=== PATIENT | female | born 1990 | race Caucasian/White ===

== ENCOUNTER 2017-06-16 14:54 | Emergency (ER) | payer OTHER ==
[~2017-06-16] VITALS: Ht 165.1 cm; Wt 84.0 kg
[2017-06-16 14:56] VITALS: BP 122/74; PULSE 133; RESP 15; TEMP 100.2; O2SAT 100
[2017-06-16] MEDS ORDERED: IBUPROFEN 600 MG TAB PO ONE (16:00)
[2017-06-16] MEDS ORDERED: ACETAMINOPHEN/HYDROcodone 325 MG/5 MG TAB PO ONE (16:00)
[2017-06-16] MEDS ORDERED: CLINDAMYCIN INJ 600 MG in SODIUM CHLORIDE 0.9% INJ 100 ML IV ONE (16:00)
[2017-06-16 16:28] LABS: AUTOMATED NEUTROPHIL # 9.4 TH/MM3 (1.8-7.7); BASOPHIL % 0.2 % (0.0-2.0); EOSINOPHIL # 0.4 TH/MM3 (0-0.4); HEMATOCRIT 37.1 % (35.0-46.0); HEMO FLAGS DIFF FINAL; LYMPH % 12.8 % (9.0-44.0); LYMPHOCYTE # 1.6 TH/MM3 (1.0-4.8); MEAN CELL VOLUME 86.1 FL (80.0-100.0); MEAN CORPUSCULAR HEMOGLOBIN 28.5 PG (27.0-34.0); MEAN CORPUSCULAR HGB CONC 33.1 % (32.0-36.0); MONO % 10.2 % (0.0-8.0); NEUT % 73.8 % (16.0-70.0); PLATELET COUNT 239 TH/MM3 (150-450); RED BLOOD COUNT 4.32 MIL/MM3 (4.00-5.30); RED CELL DISTRIBUTION WIDTH 13.4 % (11.6-17.2); WHITE BLOOD COUNT 12.8 TH/MM3 (4.0-11.0)
--- NOTE | 2017-06-16 16:28 | PD ---
HPI Chief Complaint: Oral / Dental Pain or Problem Time Seen by Provider: 15:22 Travel History International Travel<30 days: No Contact w/Intl Traveler<30days: No Traveled to known affect area: No History of Present Illness HPI 26-year-old female came to the emergency room with history of dental pain on the left side of her upper molar. Patient is from but does not have a dentist here. Patient had a temperature of 100.3 in triage. Says this has been bothering her since yesterday. She does seem uncomfortable. She was tachycardic in triage as well. She seems uncomfortable. She is also complaining of headache, facial pain and generalized body ache. PFSH Past Medical History Narrative Medical List of her past medical, surgical, social and family history reviewed from the nursing note. Arthritis: Yes (rhuematoid arthritis) Depression: Yes Diabetes: Yes Patient Takes Glucophage: No Fibromyalgia: Yes Tetanus Vaccination: < 5 Years Influenza Vaccination: No ?: Unknown LMP: 05/20/17 Social History Alcohol Use: No Tobacco Use: No Substance Use: Yes (marijuana (hx of meth)) Allergies-Medications (Allergen,Severity, Reaction): Coded Allergies: Penicillins (Verified Allergy, Severe, Anaphylaxis, 06/16/17) amoxicillin (Verified Allergy, Severe, Anaphylaxis, 06/16/17) Comments List of her allergies reviewed from the nursing note. Reported Meds & Prescriptions Reported Meds & Active Scripts Active Ibuprofen 600 Mg Tab 600 Mg PO Q6H PRN Hydrocodone-Acetaminophen 5-325 mg Tab 1 Tab PO Q6H PRN Clindamycin (Clindamycin HCl) 300 Mg Cap 300 Mg PO TID 10 Days Narrative Medication Awaiting for the nurse to the med reconciliation. Review of Systems Except as stated in HPI: all other systems reviewed are Neg Physical Exam Narrative GENERAL: Awake, alert, moderate distress, anxious SKIN: Focused skin assessment warm/dry. Multiple scabs on the face HEAD: Atraumatic. Normocephalic. EYES: Pupils equal and round. No scleral icterus. No injection or drainage. ENT: No nasal bleeding or discharge. Mucous membranes pink and moist. #16 eroded, caries, fluctuant gum on the oral aspect with a tiny pus pointing area NECK: Trachea midline. No JVD. CARDIOVASCULAR: Regular rate and rhythm. No murmur appreciated. RESPIRATORY: No accessory muscle use. Clear to auscultation. Breath sounds equal bilaterally. GASTROINTESTINAL: Abdomen soft, non-tender, nondistended. Hepatic and splenic margins not palpable. MUSCULOSKELETAL: No obvious deformities. No clubbing. No cyanosis. No edema. NEUROLOGICAL: Awake and alert. No obvious cranial nerve deficits. Motor grossly within normal limits. Normal speech. PSYCHIATRIC: Appropriate mood and affect; insight and judgment normal. Data Data Last Documented VS Vital Signs Date Time Temp Pulse Resp B/P (MAP) Pulse Ox O2 Delivery O2 Flow Rate FiO2 06/16/17 19:30 06/16/17 14:56 100.2 133 15 100 Orders Orders Complete Blood Count With Diff (06/16/17 15:47) Comprehensive Metabolic Panel (06/16/17 15:47) Lactic Acid Sepsis Protocol (06/16/17 15:47) Urinalysis - C+S If Indicated (06/16/17 15:47) Blood Culture (06/16/17 15:47) Blood Glucose (06/16/17 15:47) Ecg Monitoring (06/16/17 15:47) Iv Access Insert/Monitor (06/16/17 15:47) Oximetry (06/16/17 15:47) Oxygen Administration (06/16/17 15:47) Ibuprofen (Motrin) (06/16/17 16:00) Acetamin-Hydrocod 325-5 Mg (Velarde 5-325 (06/16/17 16:00) Clindamycin Inj (Cleocin Inj) (06/16/17 16:00) Potassium Chloride (Kcl) (06/16/17 16:45) Sodium Chlor 0.9% 1000 Ml Inj (Ns 1000 M (06/16/17 17:15) Sodium Chlor 0.9% 1000 Ml Inj (Ns 1000 M (06/16/17 17:15) Urine Culture (06/16/17 15:58) Labs Laboratory Tests Test 06/16/17 15:35 06/16/17 15:55 06/16/17 15:58 White Blood Count 12.8 TH/MM3 Red Blood Count 4.32 MIL/MM3 Hemoglobin 12.3 GM/DL Hematocrit 37.1 % Mean Corpuscular Volume 86.1 FL Mean Corpuscular Hemoglobin 28.5 PG Mean Corpuscular Hemoglobin Concent 33.1 % Red Cell Distribution Width 13.4 % Platelet Count 239 TH/MM3 Mean Platelet Volume 8.5 FL Neutrophils (%) (Auto) 73.8 % Lymphocytes (%) (Auto) 12.8 % Monocytes (%) (Auto) 10.2 % Eosinophils (%) (Auto) 3.0 % Basophils (%) (Auto) 0.2 % Neutrophils # (Auto) 9.4 TH/MM3 Lymphocytes # (Auto) 1.6 TH/MM3 Monocytes # (Auto) 1.3 TH/MM3 Eosinophils # (Auto) 0.4 TH/MM3 Basophils # (Auto) 0.0 TH/MM3 CBC Comment DIFF FINAL Differential Comment Blood Urea Nitrogen 12 MG/DL Creatinine 0.85 MG/DL Random Glucose 90 MG/DL Total Protein 8.1 GM/DL Albumin 3.5 GM/DL Calcium Level 9.0 MG/DL Alkaline Phosphatase 103 U/L Aspartate Amino Transf (AST/SGOT) 13 U/L Alanine Aminotransferase (ALT/SGPT) 24 U/L Total Bilirubin 0.4 MG/DL Sodium Level 136 MEQ/L Potassium Level 3.6 MEQ/L Chloride Level 101 MEQ/L Carbon Dioxide Level 28.0 MEQ/L Anion Gap 7 MEQ/L Estimat Glomerular Filtration Rate 82 ML/MIN Lactic Acid Level 0.8 mmol/L Urine Color YELLOW Urine Turbidity HAZY Urine pH 6.5 Urine Specific [place] 1.018 Urine Protein 30 mg/dL Urine Glucose (UA) NEG mg/dL Urine Ketones NEG mg/dL Urine Occult Blood SMALL Urine Nitrite POS Urine Bilirubin NEG Urine Urobilinogen LESS THAN 2.0 MG/DL Urine Leukocyte Esterase LARGE Urine RBC 2 /hpf Urine WBC /hpf Urine WBC Clumps FEW Urine Squamous Epithelial Cells 2 /hpf Urine Bacteria RARE /hpf Urine Mucus FEW /lpf Microscopic Urinalysis Comment CATH-CULTURE IND MDM Medical Decision Making Medical Screen Exam Complete: Yes Emergency Medical Condition: Yes Medical Record Reviewed: Yes Differential Diagnosis Dental abscess Narrative Course 5 PM patient is given IV clindamycin and IV fluid. I have ordered Tylenol for the fever. She is also getting pain medications. Blood test results are back and she has slight leukocytosis but lactic acid is within normal limit. Rest of her test results are within normal limit. After the IV antibiotic and the fluid patient can be discharged home. Procedures EKG Prior to Arrival: No Diagnosis Primary Impression: Dental abscess Referrals: Primary Care Physician Additional Instructions: Please try to get a dentist appointment as soon as possible so that the tooth can be taken care of. In go to [facility] and they will direct you to a dentist since he did not have insurance. Take the antibiotic and medication as per the prescription direction. Med/Other Pt SpecificInfo: Prescription(s) given Scripts Ibuprofen (Ibuprofen) 600 Mg Tab 600 MG PO Q6H Y for Pain/Inflammation, #40 TAB 0 Refills Prov: Simi Crews MD 06/16/17 Hydrocodone-Acetaminophen (Hydrocodone-Acetaminophen) 5-325 mg Tab 1 TAB PO Q6H Y for PAIN, #15 TAB 0 Refills Prov: Simi Crews MD 06/16/17 Clindamycin (Clindamycin) 300 Mg Cap 300 MG PO TID for Infection for 10 Days, CAP 0 Refills Prov: Simi Crews MD 06/16/17 Disposition: 01 DISCHARGE HOME Condition: Stable Simi Crews MD Jun 16, 2017 16:28
[2017-06-16] MEDS ORDERED: POTASSIUM CHLORIDE 20 MEQ CONTROLLED RELEASE TAB PO ONE (16:45)
[2017-06-16 16:49] LABS: ALT (GPT) 24 U/L (10-53); ANION GAP 7 MEQ/L (5-15); AST (GOT) 13 U/L (15-37); BLOOD UREA NITROGEN 12 MG/DL (7-18); CHLORIDE 101 MEQ/L (98-107); GLOMERULAR FILTRATION RATE 82 ML/MIN (>89); POTASSIUM 3.6 MEQ/L (3.5-5.1); SODIUM (NA) 136 MEQ/L (136-145)
[2017-06-16 16:52] LABS: ALKALINE PHOSPHATASE 103 U/L (45-117); TOTAL BILIRUBIN ADULT 0.4 MG/DL (0.2-1.0)
[2017-06-16] MEDS ORDERED: CLIN1CAP6 PO (16:55)
[2017-06-16] MEDS ORDERED: HYDR-3516 PO (16:56)
[2017-06-16] MEDS ORDERED: IBUP-232 PO (16:56)
[2017-06-16 17:14] LABS: BACTERIA, URINE RARE /hpf; BLOOD, URINE SMALL (NEG); GLUCOSE,URINE NEG (NEG); KETONE, URINE NEG (NEG); MUCUS URINE FEW /lpf (OCC); NITRITE,URINE POS (NEG); PH, URINE 6.5 (5.0-8.5); SQUAMOUS EPITHELIAL CELL URINE 2 /hpf (0-5); URINE COLOR YELLOW (YELLW/STRAW)
[2017-06-16] MEDS ORDERED: SODIUM CHLOR 0.9% 1000 ML INJ 1,000 ML IV ONE ×2 (17:15)
[2017-06-16 17:18] LABS: COMMENT (UR) CATH-CULTURE IND; CULTURE IF INDICATED CATH CULTURE IND
== END 2017-06-16 19:32 | disposition home or self-care (01) ==
LOC: NEPD 14:54
DX: K04.7 Periapical abscess without sinus (principal); N39.0 Urinary tract infection, site not specified; B96.20 Unspecified Escherichia coli [E. coli] as the cause of diseases classified elsewhere
CPT/HCPCS: 80053; 81001; 83605; 85025; 87040; 87077; 87086; 87186; 96361; 96365; 99284; J7030

== ENCOUNTER 2017-09-16 14:15 | Emergency (ER) | payer MEDICAID, OTHER ==
[~2017-09-16 14:15] MED LIST: CLIN300C5 PO; HYDR-3516 PO; IBUP-232 PO
[2017-09-16 14:16] VITALS: BP 124/84; PULSE 76; RESP 16; TEMP 98.4; O2SAT 100
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
--- NOTE | 2017-09-16 15:28 | RADRPT ---
EXAM DATE/TIME: 09/16/2017 15:04 [facility] COMPARISON: No previous studies available for comparison. INDICATIONS : Chest pain. MEDICAL HISTORY : None. SURGICAL HISTORY : None. ENCOUNTER: Initial ACUITY: 1 day PAIN SCORE: 2/10 LOCATION: Bilateral chest FINDINGS: A single view of the chest demonstrates the lungs to be symmetrically aerated without evidence of mas s, infiltrate or effusion. The cardiomediastinal contours are unremarkable. Osseous structures are intact. CONCLUSION: 1. No acute cardiopulmonary disease. Genaro Lay MD on September 16, 2017 at 15:25 Board Certified Radiologist. This report was verified electronically.
[2017-09-16 15:47] LABS: AUTOMATED NEUTROPHIL # 5.5 TH/MM3 (1.8-7.7); BASOPHIL % 0.5 % (0.0-2.0); EOSINOPHIL # 0.6 TH/MM3 (0-0.4); EOSINOPHIL % 6.1 % (0.0-4.0); HEMATOCRIT 43.2 % (35.0-46.0); HEMOGLOBIN 14.1 GM/DL (11.6-15.3); LYMPHOCYTE # 2.9 TH/MM3 (1.0-4.8); MEAN CELL VOLUME 86.8 FL (80.0-100.0); MEAN CORPUSCULAR HEMOGLOBIN 28.3 PG (27.0-34.0); MEAN CORPUSCULAR HGB CONC 32.7 % (32.0-36.0); MEAN PLATELET VOLUME 9.6 FL (7.0-11.0); MONO % 5.6 % (0.0-8.0); MONOCYTE # 0.5 TH/MM3 (0-0.9); NEUT % 57.8 % (16.0-70.0); PLATELET COUNT 229 TH/MM3 (150-450); RED BLOOD COUNT 4.98 MIL/MM3 (4.00-5.30); RED CELL DISTRIBUTION WIDTH 14.1 % (11.6-17.2); WHITE BLOOD COUNT 9.5 TH/MM3 (4.0-11.0)
[2017-09-16 16:15] LABS: ALBUMIN 3.6 GM/DL (3.4-5.0); ALT (GPT) 26 U/L (10-53); AST (GOT) 16 U/L (15-37); BICARBONATE 25.8 MEQ/L (21.0-32.0); BLOOD UREA NITROGEN 7 MG/DL (7-18); CALCIUM 8.9 MG/DL (8.5-10.1); CHLORIDE 109 MEQ/L (98-107); CREATININE 0.73 MG/DL (0.50-1.00); GLOMERULAR FILTRATION RATE 98 ML/MIN (>89); GLUCOSE,RANDOM 91 MG/DL (74-106); SODIUM (NA) 141 MEQ/L (136-145)
[2017-09-16 16:19] LABS: ALKALINE PHOSPHATASE 93 U/L (45-117); TOTAL BILIRUBIN ADULT 0.2 MG/DL (0.2-1.0); TOTAL PROTEIN 7.4 GM/DL (6.4-8.2); TROPONIN I LESS THAN 0.02 NG/ML (0.02-0.05)
[2017-09-16 17:08] VITALS: BP 124/90; PULSE 78; RESP 18; O2SAT 98
--- NOTE | 2017-09-16 20:55 | EKG ---
Date Performed: 09/16/2017 Time Performed: 14:42:10 PTAGE: 26 years EKG: Sinus rhythm NORMAL ECG NO PREVIOUS TRACING DOCTOR: Artemio Cheatham Interpretating Date/Time 09/16/2017 20:54:27
[2017-09-16 22:45] VITALS: BP 140/86; PULSE 99; RESP 18; O2SAT 99
[2017-09-17 06:10] VITALS: BP 124/64; PULSE 74; RESP 17; O2SAT 99
--- NOTE | 2017-09-17 10:58 | PD ---
Physical Exam Time Seen by Provider: 10:57 Narrative Please refer to previous providers documentation for details surrounding the patient's current visit. Data Data Last Documented VS Vital Signs Date Time Temp Pulse Resp B/P (MAP) Pulse Ox O2 Delivery O2 Flow Rate FiO2 09/17/17 06:10 74 17 124/64 (84) 99 Room Air 09/16/17 14:16 98.4 Orders Orders Complete Blood Count With Diff (09/16/17 14:46) Comprehensive Metabolic Panel (09/16/17 14:46) Ed Urine Pregnancytest Poc (09/16/17 14:46) Electrocardiogram (09/16/17 14:46) Psych Screen (09/16/17 14:46) Drug Screen, Random Urine (09/16/17 14:46) Alcohol (Ethanol) (09/16/17 14:46) Chest, Single Ap (09/16/17 ) Ckmb (Isoenzyme) Profile (09/16/17 14:46) Troponin I (09/16/17 14:46) Lactic Acid Sepsis Protocol (09/16/17 14:46) Blood Culture (09/16/17 14:46) CKMB (09/16/17 15:00) CKMB% (09/16/17 15:00) Diet Diabetic (09/17/17 Breakfast) Diet Regular Basic (09/17/17 Lunch) Ed Discharge Order (09/17/17 10:56) Labs Laboratory Tests Test 09/16/17 15:00 09/16/17 15:20 White Blood Count 9.5 TH/MM3 Red Blood Count 4.98 MIL/MM3 Hemoglobin 14.1 GM/DL Hematocrit 43.2 % Mean Corpuscular Volume 86.8 FL Mean Corpuscular Hemoglobin 28.3 PG Mean Corpuscular Hemoglobin Concent 32.7 % Red Cell Distribution Width 14.1 % Platelet Count 229 TH/MM3 Mean Platelet Volume 9.6 FL Neutrophils (%) (Auto) 57.8 % Lymphocytes (%) (Auto) 30.0 % Monocytes (%) (Auto) 5.6 % Eosinophils (%) (Auto) 6.1 % Basophils (%) (Auto) 0.5 % Neutrophils # (Auto) 5.5 TH/MM3 Lymphocytes # (Auto) 2.9 TH/MM3 Monocytes # (Auto) 0.5 TH/MM3 Eosinophils # (Auto) 0.6 TH/MM3 Basophils # (Auto) 0.0 TH/MM3 CBC Comment DIFF FINAL Differential Comment Blood Urea Nitrogen 7 MG/DL Creatinine 0.73 MG/DL Random Glucose 91 MG/DL Total Protein 7.4 GM/DL Albumin 3.6 GM/DL Calcium Level 8.9 MG/DL Alkaline Phosphatase 93 U/L Aspartate Amino Transf (AST/SGOT) 16 U/L Alanine Aminotransferase (ALT/SGPT) 26 U/L Total Bilirubin 0.2 MG/DL Sodium Level 141 MEQ/L Potassium Level 3.9 MEQ/L Chloride Level 109 MEQ/L Carbon Dioxide Level 25.8 MEQ/L Anion Gap 6 MEQ/L Estimat Glomerular Filtration Rate 98 ML/MIN Lactic Acid Level 1.7 mmol/L Total Creatine Kinase 134 U/L Creatine Kinase MB 1.2 NG/ML Troponin I LESS THAN 0.02 NG/ML Ethyl Alcohol Level LESS THAN 3 MG/DL Urine Opiates Screen NEG Urine Barbiturates Screen NEG Urine Amphetamines Screen POS Urine Benzodiazepines Screen NEG Urine Cocaine Screen NEG Urine Cannabinoids Screen POS MDM Medical Record Reviewed: Yes Supervised Visit with ROSHNI: No Narrative Course Patient has been seen and evaluated by psychiatry. Rapp act has been lifted. With no further acute medical needs, patient will be discharged at this time. Diagnosis Primary Impression: Adjustment disorder Qualified Codes: F43.25 - Adjustment disorder with mixed disturbance of emotions and conduct Referrals: [facility] (Out patient) Scripts No Active Prescriptions or Reported Meds Disposition: 01 DISCHARGE HOME Condition: Stable BinghamRaina leon REYNOLD Sep 17, 2017 10:57
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
[2017-09-17 11:08] VITALS: BP 128/82; PULSE 82; RESP 17; O2SAT 99
== END 2017-09-17 12:09 | disposition home or self-care (01) ==
LOC: NEPC 14:15 → NEPJ 09-17 12:09
DX: F43.25 Adjustment disorder with mixed disturbance of emotions and conduct (principal); F15.10 Other stimulant abuse, uncomplicated; F17.200 Nicotine dependence, unspecified, uncomplicated; E10.9 Type 1 diabetes mellitus without complications; R07.9 Chest pain, unspecified
CPT/HCPCS: 71010; 80053; 80307; 82550; 82552; 83605; 84484; 84703; 85025; 87040; 93005; 99285

== ENCOUNTER 2017-11-09 14:04 | Emergency (ER) | payer MEDICAID ==
[~2017-11-09] VITALS: Ht 167.6 cm; Wt 95.5 kg
[2017-11-09 14:06] VITALS: BP 124/63; PULSE 99; RESP 13; TEMP 98.2; O2SAT 99
[2017-11-09] MEDS ORDERED: BACT800T5 PO (15:08)
[2017-11-09] MEDS ORDERED: IBUP1TAB7 PO (15:08)
--- NOTE | 2017-11-09 15:08 | PD ---
HPI Chief Complaint: Lump, Cyst, Hernia Time Seen by Provider: 14:51 Travel History International Travel<30 days: No Contact w/Intl Traveler<30days: No Traveled to known affect area: No History of Present Illness HPI 26-year-old female presents to emergency Department with complaint of an abscess to her right armpit 2 weeks. Denies drainage. Denies fever, vomiting. No prior antibiotics. Has been taking ibuprofen for symptom management. Rates pain 7/10. Describes as a pressure and throbbing sensation. Aggravated with palpation when she puts her arm down. No known relieving factors. No primary care provider. Allergies to penicillins. History of diabetes mellitus and is diet controlled. Has no other medical complaints. No other modifying factors or associated signs and symptoms. 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), methamphetamine IV) Allergies-Medications (Allergen,Severity, Reaction): Coded Allergies: Penicillins (Verified Allergy, Severe, Anaphylaxis, 11/09/17) amoxicillin (Verified Allergy, Severe, Anaphylaxis, 11/09/17) Reported Meds & Prescriptions Reported Meds & Active Scripts Active Ibuprofen 800 Mg Tab 800 Mg PO Q6HR PRN Bactrim DS (Sulfamethoxazole-Trimethoprim) 800-160 Mg Tab 1 Tab PO BID 10 Days Review of Systems Except as stated in HPI: all other systems reviewed are Neg Physical Exam Narrative GENERAL: Well-nourished, well-developed female patient, in no acute distress; afebrile, nontoxic-appearing SKIN: There is an indurated area to the right axilla which measures about 2.5 cm in diameter. It is fluctuant but there is no pointing or drainage. There is a zone of inflammation around it but no lymphangitis. HEAD: Atraumatic. Normocephalic. EYES: Pupils equal and round. No scleral icterus. No injection or drainage. ENT: Mucosa pink and moist. Airway patent. NECK: Trachea midline. CARDIOVASCULAR: Regular rate. RESPIRATORY: No accessory muscle use. GASTROINTESTINAL: Obese. MUSCULOSKELETAL: No obvious deformities. No clubbing. No cyanosis. No edema. NEUROLOGICAL: Awake and alert. Oriented 3. No obvious cranial nerve deficits. Motor grossly within normal limits. Normal speech. PSYCHIATRIC: Appropriate mood and affect; insight and judgment normal. Data Data Last Documented VS Vital Signs Date Time Temp Pulse Resp B/P (MAP) Pulse Ox O2 Delivery O2 Flow Rate FiO2 11/09/17 14:06 98.2 99 13 124/63 (83) 99 Orders Orders Wound Culture And Gram Stain (11/09/17 15:05) Lidocaine 1% Inj (Xylocaine 1% Inj) (11/09/17 15:15) Ed Discharge Order (11/09/17 15:30) [facility] Medical Decision Making Medical Screen Exam Complete: Yes Emergency Medical Condition: Yes Medical Record Reviewed: Yes Differential Diagnosis Abscess, cellulitis, hydradenitis Narrative Course 26-year-old female with an abscess to the right axilla. Patient is afebrile and nontoxic-appearing. Denies fever, vomiting. My procedure note for incision and drainage. Wound culture pending. Ibuprofen administered in the ER. Bactrim and ibuprofen prescribed for home. Instructed patient to return to emergency department or follow-up with primary care provider in 48 hours for packing removal. Instructed patient to follow up with primary care provider. Patient verbalizes understanding and agreement with treatment plan. Patient is medically cleared and stable for discharge. Discussed reasons to return to the emergency department. Patient agrees with treatment plan. The patients vital signs are stable and the patient is stable for outpatient follow-up and treatment. Patient discharged home, stable and in no acute distress. Procedures Procedure Narrative INCISION AND DRAINAGE OF ABSCESS: The area was prepped and was sterilely draped. A subcutaneous wheal of 1 % Xylocaine with a total number 2 mL was used to anesthetize the area properly. A number 11 scalpel was used to make a 1 -cm incision across the area of the abscess. The abscess was drained, complex loculations were broken down, and irrigated with normal saline. Cultures were obtained. Quarter inch iodoform packing was placed in the wound. Sterile dressing applied. Patient advised to have packing removed in two days. Diagnosis Primary Impression: Abscess of right axilla Referrals: [facility] Primary Care Physician Patient Instructions: Abscess (ED), Abscess Follow-up (ED), Abscess Incision and Drainage (GEN), General Instructions Additional Instructions: Complete full course of antibiotics Warm compresses to the affected area Keep area clean and dry Ibuprofen or Tylenol as directed and as needed for pain and inflammation Follow-up with primary care provider Return to the emergency department or follow-up with primary care provider in 48 hours for abscess packing removal Return to emergency department immediately with worsening of symptoms Med/Other Pt SpecificInfo: Prescription(s) given Scripts Ibuprofen (Ibuprofen) 800 Mg Tab 800 MG PO Q6HR Y for PAIN, #30 TAB 0 Refills Prov: Rose Johnson 11/09/17 Sulfamethoxazole-Trimethoprim (Bactrim DS) 800-160 Mg Tab 1 TAB PO BID for Infection for 10 Days, #20 TAB 0 Refills Prov: Rose Johnson 11/09/17 Disposition: 01 DISCHARGE HOME Condition: Stable Rose Johnson Nov 09, 2017 15:08
--- NOTE | 2017-11-09 15:09 | PD ---
Physical Exam Date Seen by Provider: Nov 09, 2017 Time Seen by Provider: 15:07 Narrative Patient presents with a right axillary abscess Data Data Last Documented VS Vital Signs Date Time Temp Pulse Resp B/P (MAP) Pulse Ox O2 Delivery O2 Flow Rate FiO2 11/09/17 14:06 98.2 99 13 124/63 (83) 99 Orders Orders Wound Culture And Gram Stain (11/09/17 15:05) Lidocaine 1% Inj (Xylocaine 1% Inj) (11/09/17 15:15) MDM Supervised Visit with ROSHNI: Yes Narrative Course I, Dr. Nick, have reviewed the advance practice practitioner's documentation and am in agreement, met with the patient face to face, made the diagnosis, and the medical decision making was done by me. *My assessment and Findings: Patient has an area of redness, induration and fluctuance in the right axilla. Please see Rose Johnson NP's note for results of laboratory and radiographic evaluation, ED course, final diagnosis and disposition Scripts No Active Prescriptions or Reported Meds Charu Nick MD Nov 09, 2017 15:09
[2017-11-09] MEDS ORDERED: LIDOCAINE HCL 1% 20 ML VIAL INFIL ONE (15:15)
== END 2017-11-09 16:02 | disposition home or self-care (01) ==
LOC: NEPD 14:04
DX: L02.411 Cutaneous abscess of right axilla (principal); B95.61 Methicillin susceptible Staphylococcus aureus infection as the cause of diseases classified elsewhere; E11.9 Type 2 diabetes mellitus without complications; M06.9 Rheumatoid arthritis, unspecified; F41.9 Anxiety disorder, unspecified; F32.9 Major depressive disorder, single episode, unspecified; M79.7 Fibromyalgia; F17.200 Nicotine dependence, unspecified, uncomplicated; Z88.0 Allergy status to penicillin
CPT/HCPCS: 10061; 86403; 87070; 87186; 87205

== ENCOUNTER 2017-12-31 04:29 | Emergency (ER) | payer BC, MEDICAID ==
[~2017-12-31] VITALS: Ht 165.1 cm; Wt 91.0 kg
[~2017-12-31 04:29] MED LIST changes: +BACT800T5 PO; -CLIN300C5 PO; -HYDR-3516 PO; -IBUP-232 PO; +IBUP1TAB7 PO
[2017-12-31 04:31] VITALS: BP 166/94; PULSE 108; RESP 18; TEMP 98; O2SAT 100
[2017-12-31 04:43] VITALS: BP 131/58; PULSE 106; RESP 18; O2SAT 100
[2017-12-31] MEDS ORDERED: SODIUM CHLOR 0.9% 1000 ML INJ 1,000 ML IV SCH (04:59)
[2017-12-31] MEDS ORDERED: KETOROLAC TROMETHAMINE 30 MG/ML (IVP) VIAL IVP ONE (05:00)
[2017-12-31] MEDS ORDERED: SODIUM CHLORIDE 0.9% FLUSH 10 ML FLUSH IV FLUSH PRN (05:00)
--- NOTE | 2017-12-31 05:00 | PD ---
HPI Chief Complaint: Abdominal Pain Time Seen by Provider: 04:49 Travel History International Travel<30 days: No Contact w/Intl Traveler<30days: No Traveled to known affect area: No History of Present Illness HPI Patient is a 27-year-old female resents emergency department with right upper quadrant pain "for years" which is been worse over the past 3 days. Patient states it has gets worse anytime she eats a fatty meal. She thinks it is her gallbladder. She has no primary care physician which to follow-up with. She states that she went to work [employer] and her boss told her she had to come in and be seen rather than go to work. She endorses some nausea without vomiting, no fevers, well localized to the right upper quadrant without radiation. 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 HEAD: Atraumatic. Normocephalic. EYES: Pupils equal and round. No scleral icterus. No injection or drainage. ENT: No nasal bleeding or discharge. Mucous membranes pink and moist. NECK: Trachea midline. No JVD. CARDIOVASCULAR: Regular rate and rhythm. No murmur appreciated. RESPIRATORY: No accessory muscle use. Clear to auscultation. Breath sounds equal bilaterally. GASTROINTESTINAL: Abdomen soft, minimally tender in the right upper quadrant, Keenan sign negative, no rebound no percussive tenderness, nondistended. Hepatic and splenic margins not palpable. MUSCULOSKELETAL: No obvious deformities. No clubbing. No cyanosis. No edema. NEUROLOGICAL: Awake and alert. No obvious cranial nerve deficits. Motor grossly within normal limits. Normal speech. PSYCHIATRIC: Appropriate mood and affect; insight and judgment normal. Data Data Last Documented VS Vital Signs Date Time Temp Pulse Resp B/P (MAP) Pulse Ox O2 Delivery O2 Flow Rate FiO2 12/31/17 06:18 18 12/31/17 05:56 97 116/91 (99) 97 Room Air 12/31/17 04:31 98.0 Orders Orders Urinalysis - C+S If Indicated (12/31/17 04:35) Ed Urine Pregnancytest Poc (12/31/17 04:35) Complete Blood Count With Diff (12/31/17 04:59) Comprehensive Metabolic Panel (12/31/17 04:59) Lipase (12/31/17 04:59) Iv Access Insert/Monitor (12/31/17 04:59) Ecg Monitoring (12/31/17 04:59) Oximetry (12/31/17 04:59) Sodium Chlor 0.9% 1000 Ml Inj (Ns 1000 M (12/31/17 04:59) Sodium Chloride 0.9% Flush (Ns Flush) (12/31/17 05:00) Ketorolac Inj (Toradol Inj) (12/31/17 05:00) Ct Abd/Pel W/O Iv Contrast (12/31/17 ) Labs Laboratory Tests Test 12/31/17 05:22 White Blood Count 8.7 TH/MM3 Red Blood Count 5.00 MIL/MM3 Hemoglobin 14.4 GM/DL Hematocrit 41.8 % Mean Corpuscular Volume 83.6 FL Mean Corpuscular Hemoglobin 28.8 PG Mean Corpuscular Hemoglobin Concent 34.4 % Red Cell Distribution Width 14.2 % Platelet Count 305 TH/MM3 Mean Platelet Volume 9.9 FL Neutrophils (%) (Auto) 53.1 % Lymphocytes (%) (Auto) 34.6 % Monocytes (%) (Auto) 8.3 % Eosinophils (%) (Auto) 3.1 % Basophils (%) (Auto) 0.9 % Neutrophils # (Auto) 4.6 TH/MM3 Lymphocytes # (Auto) 3.0 TH/MM3 Monocytes # (Auto) 0.7 TH/MM3 Eosinophils # (Auto) 0.3 TH/MM3 Basophils # (Auto) 0.1 TH/MM3 CBC Comment DIFF FINAL Differential Comment Blood Urea Nitrogen 16 MG/DL Creatinine 1.08 MG/DL Random Glucose 90 MG/DL Total Protein 8.2 GM/DL Albumin 4.3 GM/DL Calcium Level 9.5 MG/DL Alkaline Phosphatase 95 U/L Aspartate Amino Transf (AST/SGOT) 23 U/L Alanine Aminotransferase (ALT/SGPT) 22 U/L Total Bilirubin 0.6 MG/DL Sodium Level 143 MEQ/L Potassium Level 4.0 MEQ/L Chloride Level 109 MEQ/L Carbon Dioxide Level 25.3 MEQ/L Anion Gap 9 MEQ/L Estimat Glomerular Filtration Rate 62 ML/MIN Lipase 76 U/L [facility] Medical Decision Making Medical Screen Exam Complete: Yes Emergency Medical Condition: Yes Differential Diagnosis Chronic cholecystitis, acute cholecystitis seems unlikely, acute abdomen seems highly unlikely, gastritis, gastroenteritis, peptic ulcer disease. Narrative Course Patient room to the emergency department, her initial labs are unremarkable, her abdomen is only minimally tender, her urine specimen did have blood tinged in it, history was related the patient has had intermittent hematuria over the past year as well. Her last cycle was 2 weeks ago. I have added a CT abdomen and pelvis on at this point given the hematuria in her right upper quadrant abdominal pain. She does appear quite comfortable patient will be discussed with the oncoming provider at 0700 to follow-up the CAT scan and disposition a properly Diagnosis Primary Impression: Right upper quadrant abdominal pain Referrals: Eliecer Richter MD Scripts No Active Prescriptions or Reported Meds Levi Busby MD Dec 31, 2017 05:00
[2017-12-31 05:12] VITALS: RESP 16; O2SAT 100
[2017-12-31 05:35] LABS: AUTOMATED NEUTROPHIL # 4.6 TH/MM3 (1.8-7.7); BASOPHIL # 0.1 TH/MM3 (0-0.2); BASOPHIL % 0.9 % (0.0-2.0); EOSINOPHIL # 0.3 TH/MM3 (0-0.4); EOSINOPHIL % 3.1 % (0.0-4.0); HEMATOCRIT 41.8 % (35.0-46.0); HEMOGLOBIN 14.4 GM/DL (11.6-15.3); LYMPH % 34.6 % (9.0-44.0); MEAN CELL VOLUME 83.6 FL (80.0-100.0); MEAN CORPUSCULAR HEMOGLOBIN 28.8 PG (27.0-34.0); MEAN CORPUSCULAR HGB CONC 34.4 % (32.0-36.0); MEAN PLATELET VOLUME 9.9 FL (7.0-11.0); MONO % 8.3 % (0.0-8.0); MONOCYTE # 0.7 TH/MM3 (0-0.9); NEUT % 53.1 % (16.0-70.0); PLATELET COUNT 305 TH/MM3 (150-450); RED CELL DISTRIBUTION WIDTH 14.2 % (11.6-17.2); WHITE BLOOD COUNT 8.7 TH/MM3 (4.0-11.0)
[2017-12-31 05:56] VITALS: BP 116/91; PULSE 97; RESP 18; O2SAT 97
[2017-12-31 06:08] LABS: ALT (GPT) 22 U/L (10-53)
[2017-12-31 06:09] LABS: ALKALINE PHOSPHATASE 95 U/L (45-117); TOTAL BILIRUBIN ADULT 0.6 MG/DL (0.2-1.0); TOTAL PROTEIN 8.2 GM/DL (6.4-8.2)
[2017-12-31 06:12] LABS: ALBUMIN 4.3 GM/DL (3.4-5.0); AST (GOT) 23 U/L (15-37); BICARBONATE 25.3 MEQ/L (21.0-32.0); BLOOD UREA NITROGEN 16 MG/DL (7-18); CALCIUM 9.5 MG/DL (8.5-10.1); CHLORIDE 109 MEQ/L (98-107); CREATININE 1.08 MG/DL (0.50-1.00); GLOMERULAR FILTRATION RATE 62 ML/MIN (>89); GLUCOSE,RANDOM 90 MG/DL (74-106); SODIUM (NA) 143 MEQ/L (136-145)
[2017-12-31 06:18] VITALS: RESP 18
--- NOTE | 2017-12-31 07:33 | RADRPT ---
EXAM DATE/TIME: 12/31/2017 07:14 [place] COMPARISON: No previous studies available for comparison. INDICATIONS : Right upper quadrant pain. ORAL CONTRAST: No oral contrast ingested. RADIATION DOSE: 8.65 CTDIvol (mGy) MEDICAL HISTORY : Rheumatoid arthritis. Endocarditis. SURGICAL HISTORY : None. ENCOUNTER: Initial ACUITY: 3 days PAIN SCALE: 9/10 LOCATION: Right upper quadrant TECHNIQUE: Volumetric scanning of the abdomen and pelvis was performed. Using automated exposure control and ad justment of the mA and/or kV according to patient size, radiation dose was kept as low as reasonably achievable to obtain optimal diagnostic quality images. DICOM format image data is available electro nically for review and comparison. The lack of IV contrast limits the diagnosis for certain organ pa thology. FINDINGS: LOWER LUNGS: The visualized lower lungs are clear. LIVER: Homogeneous density without lesion. There is no dilation of the biliary tree. Multiple calcified gal lstones. No fluid around the gallbladder. No adjacent inflammatory changes. SPLEEN: Normal size without lesion. PANCREAS: Within normal limits. Tiny calcification in the tail the pancreas. KIDNEYS: Normal in size and shape. There is no mass, stone, or hydronephrosis. ADRENAL GLANDS: Within normal limits. VASCULAR: There is no aortic aneurysm. BOWEL/MESENTERY: The stomach, small bowel, and colon demonstrate no acute abnormality. There is no free intraperitone al air or fluid. The appendix is unremarkable. There is stool throughout the colon. No inflammatory c hanges. ABDOMINAL WALL: Within normal limits. RETROPERITONEUM: There is no lymphadenopathy. BLADDER: Decompressed. REPRODUCTIVE: Within normal limits. INGUINAL: There is no lymphadenopathy or hernia. MUSCULOSKELETAL: Within normal limits for patient age. CONCLUSION: 1. Multiple gallstones in the gallbladder. No biliary tract obstruction. No adjacent inflammatory ekaterina nges. 2. Otherwise, no focal or acute abdominal or pelvic pathology. Mars Sprague MD on December 31, 2017 at 7:28 Board Certified Radiologist. This report was verified electronically.
[2017-12-31 08:11] LABS: BACTERIA, URINE MOD /hpf; BILIRUBIN, URINE NEG (NEG); BLOOD, URINE NEG (NEG); GLUCOSE,URINE NEG (NEG); HYALINE CAST, URINE 9 /lpf (RARE); KETONE, URINE 10 mg/dL (NEG); MUCUS URINE MANY /lpf (OCC); NITRITE,URINE NEG (NEG); SQUAMOUS EPITHELIAL CELL URINE 5 /hpf (0-5); URINE COLOR YELLOW (YELLW/STRAW); URINE LEUKOCYTE ESTERASE LARGE (NEG)
[2017-12-31] MEDS ORDERED: MACR100C3 PO (08:21)
[2017-12-31] MEDS ORDERED: TRAM50 PO (08:21)
--- NOTE | 2017-12-31 08:22 | PD ---
Physical Exam Narrative GENERAL: SKIN: Warm and dry. HEAD: Atraumatic. Normocephalic. EYES: Pupils equal and round. No scleral icterus. No injection or drainage. ENT: No nasal bleeding or discharge. Mucous membranes pink and moist. NECK: Trachea midline. No JVD. CARDIOVASCULAR: Regular rate and rhythm. RESPIRATORY: No accessory muscle use. Clear to auscultation. Breath sounds equal bilaterally. GASTROINTESTINAL: Abdomen soft, non-tender, nondistended.(ON REEVALUATION) MUSCULOSKELETAL: Extremities without clubbing, cyanosis, or edema. No obvious deformities. NEUROLOGICAL: Awake and alert. No obvious cranial nerve deficits. Motor grossly within normal limits. Five out of 5 muscle strength in the arms and legs. Normal speech. PSYCHIATRIC: Appropriate mood and affect; insight and judgment normal. Data Data Last Documented VS Vital Signs Date Time Temp Pulse Resp B/P (MAP) Pulse Ox O2 Delivery O2 Flow Rate FiO2 12/31/17 06:18 18 12/31/17 05:56 97 116/91 (99) 97 Room Air 12/31/17 04:31 98.0 Orders Orders Urinalysis - C+S If Indicated (12/31/17 04:35) Ed Urine Pregnancytest Poc (12/31/17 04:35) Complete Blood Count With Diff (12/31/17 04:59) Comprehensive Metabolic Panel (12/31/17 04:59) Lipase (12/31/17 04:59) Iv Access Insert/Monitor (12/31/17 04:59) Ecg Monitoring (12/31/17 04:59) Oximetry (12/31/17 04:59) Sodium Chlor 0.9% 1000 Ml Inj (Ns 1000 M (12/31/17 04:59) Sodium Chloride 0.9% Flush (Ns Flush) (12/31/17 05:00) Ketorolac Inj (Toradol Inj) (12/31/17 05:00) Ct Abd/Pel W/O Iv Contrast (12/31/17 ) Urine Culture (12/31/17 06:34) Labs Laboratory Tests Test 12/31/17 05:22 12/31/17 06:34 White Blood Count 8.7 TH/MM3 Red Blood Count 5.00 MIL/MM3 Hemoglobin 14.4 GM/DL Hematocrit 41.8 % Mean Corpuscular Volume 83.6 FL Mean Corpuscular Hemoglobin 28.8 PG Mean Corpuscular Hemoglobin Concent 34.4 % Red Cell Distribution Width 14.2 % Platelet Count 305 TH/MM3 Mean Platelet Volume 9.9 FL Neutrophils (%) (Auto) 53.1 % Lymphocytes (%) (Auto) 34.6 % Monocytes (%) (Auto) 8.3 % Eosinophils (%) (Auto) 3.1 % Basophils (%) (Auto) 0.9 % Neutrophils # (Auto) 4.6 TH/MM3 Lymphocytes # (Auto) 3.0 TH/MM3 Monocytes # (Auto) 0.7 TH/MM3 Eosinophils # (Auto) 0.3 TH/MM3 Basophils # (Auto) 0.1 TH/MM3 CBC Comment DIFF FINAL Differential Comment Blood Urea Nitrogen 16 MG/DL Creatinine 1.08 MG/DL Random Glucose 90 MG/DL Total Protein 8.2 GM/DL Albumin 4.3 GM/DL Calcium Level 9.5 MG/DL Alkaline Phosphatase 95 U/L Aspartate Amino Transf (AST/SGOT) 23 U/L Alanine Aminotransferase (ALT/SGPT) 22 U/L Total Bilirubin 0.6 MG/DL Sodium Level 143 MEQ/L Potassium Level 4.0 MEQ/L Chloride Level 109 MEQ/L Carbon Dioxide Level 25.3 MEQ/L Anion Gap 9 MEQ/L Estimat Glomerular Filtration Rate 62 ML/MIN Lipase 76 U/L Urine Color YELLOW Urine Turbidity HAZY Urine pH 6.0 Urine Specific [place] 1.038 Urine Protein 30 mg/dL Urine Glucose (UA) NEG mg/dL Urine Ketones 10 mg/dL Urine Occult Blood NEG Urine Nitrite NEG Urine Bilirubin NEG Urine Urobilinogen LESS THAN 2.0 MG/DL Urine Leukocyte Esterase LARGE Urine RBC 5 /hpf Urine WBC 40 /hpf Urine Squamous Epithelial Cells 5 /hpf Urine Bacteria MOD /hpf Urine Hyaline Casts 9 /lpf Urine Mucus MANY /lpf Microscopic Urinalysis Comment CULTURE INDICATED MDM Medical Record Reviewed: Yes Supervised Visit with ROSHNI: No Narrative Course CT abdomen and pelvis as per radiology report shows multiple gallstones in the gallbladder no biliary tract obstruction and no evidence of any other acute abdominal or pelvic pathology. CBC shows no leukocytosis, no anemia, normal platelet count, no left shift UA is consistent with a UTI Chemistry shows normal electrolytes, normal kidney liver and pancreatic functions Diagnosis Primary Impression: Biliary colic Additional Impression: UTI Referrals: Eliecer Richter MD Patient Instructions: Biliary Colic (ED), General Instructions, Urinary Tract Infection in Women (DC) Scripts Tramadol (Ultram) 50 Mg Tab 50 MG PO Q8H Y for PAIN for 5 Days, #15 TAB 0 Refills Prov: Danilo Strong MD 12/31/17 Nitrofurantoin Macrocrystal (Macrodantin) 100 Mg Cap 100 MG PO BID for 7 Days, #14 CAP 0 Refills Prov: Danilo Strong MD 12/31/17 Disposition: 01 DISCHARGE HOME Condition: Stable Danilo Strong MD Dec 31, 2017 08:22
[2017-12-31] MEDS ORDERED: DICY10 PO (08:36)
[2017-12-31 09:12] VITALS: BP 119/81
== END 2017-12-31 09:14 | disposition home or self-care (01) ==
LOC: NEPE 04:29
DX: K80.70 Calculus of gallbladder and bile duct without cholecystitis without obstruction (principal); N39.0 Urinary tract infection, site not specified; F17.200 Nicotine dependence, unspecified, uncomplicated
CPT/HCPCS: 74176; 80053; 81001; 83690; 84703; 85025; 87086; 96361; 96374; 99284; J1885; J7030

== ENCOUNTER 2018-02-13 16:10 | Inpatient (IN) | payer BC, MEDICAID ==
[~2018-02-13 16:10] MED LIST changes: -BACT800T5 PO; +DICY10 PO; -IBUP1TAB7 PO; +MACR100C3 PO; +TRAM50 PO
[2018-02-13 16:13] VITALS: BP 151/67; PULSE 103; RESP 20; TEMP 98.1; O2SAT 97
[2018-02-13] MEDS ORDERED: LIDOCAINE HCL 1% PF 30 ML VIAL INFIL ONE (18:00)
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
[2018-02-13 20:31] LABS: BASOPHIL # 0.1 TH/MM3 (0-0.2); BASOPHIL % 0.7 % (0.0-2.0); EOSINOPHIL # 0.5 TH/MM3 (0-0.4); EOSINOPHIL % 3.5 % (0.0-4.0); HEMATOCRIT 41.8 % (35.0-46.0); HEMOGLOBIN 13.7 GM/DL (11.6-15.3); LYMPH % 28.6 % (9.0-44.0); LYMPHOCYTE # 3.7 TH/MM3 (1.0-4.8); MEAN CELL VOLUME 87.1 FL (80.0-100.0); MEAN CORPUSCULAR HEMOGLOBIN 28.6 PG (27.0-34.0); MEAN CORPUSCULAR HGB CONC 32.9 % (32.0-36.0); MEAN PLATELET VOLUME 10.2 FL (7.0-11.0); MONO % 5.7 % (0.0-8.0); MONOCYTE # 0.7 TH/MM3 (0-0.9); NEUT % 61.5 % (16.0-70.0); PLATELET COUNT 200 TH/MM3 (150-450); RED BLOOD COUNT 4.81 MIL/MM3 (4.00-5.30); RED CELL DISTRIBUTION WIDTH 14.1 % (11.6-17.2)
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
[2018-02-13 20:40] LABS: ALBUMIN 3.6 GM/DL (3.4-5.0); AST (GOT) 18 U/L (15-37); BICARBONATE 20.2 MEQ/L (21.0-32.0); BLOOD UREA NITROGEN 22 MG/DL (7-18); CALCIUM 8.4 MG/DL (8.5-10.1); CHLORIDE 110 MEQ/L (98-107); GLOMERULAR FILTRATION RATE 102 ML/MIN (>89); GLUCOSE,RANDOM 97 MG/DL (74-106); SODIUM (NA) 141 MEQ/L (136-145)
[2018-02-13 20:41] LABS: ALT (GPT) 23 U/L (10-53)
[2018-02-13 20:49] LABS: ACETAMINOPHEN LESS THAN 2.0 MCG/ML (10.0-30.0)
[2018-02-13 20:50] VITALS: BP 118/69; PULSE 90; RESP 18
[2018-02-13 20:51] LABS: ALKALINE PHOSPHATASE 77 U/L (45-117); TOTAL BILIRUBIN ADULT 0.2 MG/DL (0.2-1.0); TOTAL PROTEIN 6.8 GM/DL (6.4-8.2)
[2018-02-13 21:04] LABS: BACTERIA, URINE OCC /hpf; BILIRUBIN, URINE NEG (NEG); BLOOD, URINE NEG (NEG); GLUCOSE,URINE NEG (NEG); KETONE, URINE NEG (NEG); MUCUS URINE FEW /lpf (OCC); NITRITE,URINE NEG (NEG); SQUAMOUS EPITHELIAL CELL URINE 2 /hpf (0-5); URINE COLOR LIGHT-YELLOW (YELLW/STRAW); URINE LEUKOCYTE ESTERASE SMALL (NEG)
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
[2018-02-13] MEDS ORDERED: CEPH-460 PO (22:46)
[2018-02-14] MEDS ORDERED: oxyCODONE/ACETAMINOPHEN 5 MG/325 MG TAB PO ONE (00:30)
[2018-02-14 00:39] VITALS: BP 112/63; PULSE 89; RESP 18
[2018-02-14 06:14] VITALS: BP 106/54; PULSE 72; RESP 15; TEMP 97.8; O2SAT 98
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
[2018-02-14] MEDS ORDERED: NICOTINE 21 MG/24 HR PATCH T-DERMAL PRN (08:00)
[2018-02-14] MEDS ORDERED: MAGNESIUM HYDROXIDE SUSP 30 ML CUP PO PRN (08:00)
[2018-02-14] MEDS ORDERED: ALUMINUM/MAGNESIUM/SIMETH 30 ML CUP PO PRN (08:00)
[2018-02-14] MEDS: DOXYCYCLINE HYCLATE 100 MG CAP PO SCH ×2 (09:00→20:18)
[2018-02-14] MEDS: ACETAMINOPHEN 325 MG TAB PO PRN ×2 (09:43→21:08)
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
[2018-02-14 17:36] VITALS: BP 112/53; PULSE 78; RESP 18; TEMP 98; O2SAT 100
[2018-02-14] MEDS: REMOVE OLD NICODERM (NICOTINE) PATCH T-DERMAL SCH (20:19)
[2018-02-15 05:55] VITALS: BP 109/66; PULSE 74; RESP 16; TEMP 97.8; O2SAT 99
[2018-02-15] MEDS: DOXYCYCLINE HYCLATE 100 MG CAP PO SCH ×2 (08:31→20:35)
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
--- NOTE | 2018-02-15 13:25 | PD.PSY.CON ---
Provisional Diagnosis Admission Date February 14, 2018 at 07:46 [place] I. 1. Adjustment disorder with mixed disturbance of emotions and conduct 2. Polysubstance abuse [place] II. 1. Cluster B personality traits History of Present Illness Service Psychiatry Consult Requested By Psychiatry Reason for Consult 2nd Opinion Primary Care Physician No Primary Care Physician HPI Pt seen and discussed with staff. Chart reviewed. She has been guarded and suspicious of others on the unit. She was admitted due to lacerating self causing damage to tendon. She refused care this morning and has been resistant to treatment and refuses psychotropics. She reports she has been very depressed with an unstable mood since moving to [facility] and not having a provider to prescribe lamotrigine. She reports that she has tried a variety of antidepressants and mood stabilizers. She reports best success with mood stabilizers and states lamotrigine was very helpful with stabilizing mood and lifting depression. She states that she tolerated medication without side effects or macias ryley rash. She states that she is now agreeable to start medications but is not agreeable to remain in hospital and requests discharge now. She does not have current provider and reports very poor impulse control. M. Past psychiatric history: She is not under the care of an outpatient psychiatrist. Hx of 1 prior psychiatric admission She denies any history of suicide attempts. Family history: The patient denies any family history of mental illness. Chemical dependency history: The patient reports use of cannabis. Urine tox+ amphetamines Social history: The patient resides with her boyfriend. She has no children. She has 12 grade education. She works at a [employer] shop. She denies any access to guns or firearms. Past Family Social History Coded Allergies: Penicillins (Verified Allergy, Severe, Anaphylaxis, 02/13/18) amoxicillin (Verified Allergy, Severe, Anaphylaxis, 02/13/18) Active Scripts Cephalexin (Keflex) 500 Mg Cap, 500 MG PO Q12H for Infection for 7 Days, #14 CAP 0 Refills Prov:Steph Han 02/13/18 Discontinued Scripts Dicyclomine (Bentyl) 10 Mg Cap, 10 MG PO TID Y for Bowel Management for 5 Days, #15 CAP 0 Refills Prov:Danilo Strong MD 12/31/17 Tramadol (Ultram) 50 Mg Tab, 50 MG PO Q8H Y for PAIN for 5 Days, #15 TAB 0 Refills Prov:Danilo Strong MD 12/31/17 Nitrofurantoin Macrocrystal (Macrodantin) 100 Mg Cap, 100 MG PO BID for 7 Days, #14 CAP 0 Refills Prov:Danilo Strong MD 12/31/17 Current Medications Medications (Trade) Dose Ordered Sig/Arleth Route Start Time Stop Time Status Last Admin (Vibramycin) 100 mg BID PO 02/14/18 09:00 02/24/18 08:59 02/15/18 08:31 (Tylenol) 650 mg Q4H PRN PO 02/14/18 08:00 02/14/18 21:08 (Milk Of Magnesia Liq) 30 ml DAILY PRN PO 02/14/18 08:00 (Mag-Al Plus Susp Liq) 30 ml Q6H PRN PO 02/14/18 08:00 (Habitrol 21 Mg Patch.24 Hr) 1 patch DAILY PRN T-DERMAL 02/14/18 08:00 Miscellaneous Information 1 HS T-DERMAL 02/14/18 21:00 Patient's Strengths (min. 2) In a monitored setting. Verbally fluent. Physical Exam Vital Signs Vital Signs Date Time Temp Pulse Resp B/P (MAP) Pulse Ox O2 Delivery O2 Flow Rate FiO2 02/15/18 05:55 97.8 74 16 109/66 (80) 99 02/14/18 06:14 Room Air Lab Results Date/Time Source Procedure Growth Status 02/13/18 20:30 Urine Clean Catch Urine Culture - Final 10-50,000 CFU/ML MIXED GRAM POSITIVE ... Complete Mental Status Examination Appearance: Disheveled Consciousness: Alert Orientation: x4 Motor Activity: Other (No motor abnormalities noted) Speech: Unremarkable Language: Adequate Fund of Knowledge: Adequate Attention and Concentration: Adequate Memory: Unremarkable (Grossly intact on clinical exam) Mood: Sad, Anxious, Irritable Affect: Sad, Anxious Thought Process & Associations: Intact Thought Content: Appropriate Hallucination Type: None Delusion Type: None Suicidal Ideation: No (Unreliable to contract for safety) Suicidal Plan: No Suicidal Intention: No Homicidal Ideation: No Homicidal Plan: No Homicidal Intention: No Insight: Poor Judgment: Poor Assessment & Plan Problem List: (1) Adjustment disorder with mixed disturbance of emotions and conduct ICD Codes: F43.25 - Adjustment disorder with mixed disturbance of emotions and conduct (2) Polysubstance abuse ICD Codes: F19.10 - Other psychoactive substance abuse, uncomplicated Assessment & Plan I agree that pt warrants extra monitoring due to recent significant self harm. 2nd opinion paperwork completed. Pt consents to trial of lamotrigine. Risks vs benefits, potential side effects including macias ryley rash, rationale of use discussed with patient who consents to trial. Estimated LOS: days Request HC Surrog/Guard Advoc?: No (Not at this time) Shira South MD February 15, 2018 13:25
[2018-02-15] MEDS: ACETAMINOPHEN 325 MG TAB PO PRN (20:37)
[2018-02-15] MEDS: REMOVE OLD NICODERM (NICOTINE) PATCH T-DERMAL SCH (20:40)
[2018-02-16 05:31] VITALS: BP 108/55; PULSE 77; RESP 16; TEMP 98.4; O2SAT 93
[2018-02-16] MEDS ORDERED: lamoTRIgine 25 MG TAB PO SCH (09:00)
[2018-02-16] MEDS: DOXYCYCLINE HYCLATE 100 MG CAP PO SCH (09:27)
[2018-02-16] MEDS ORDERED: LAMO25 PO (10:39)
[2018-02-16] MEDS ORDERED: DOXY100C PO (10:39)
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
== END 2018-02-16 12:50 | disposition home or self-care (01) | DRG 882 ==
LOC: NEPK 16:10 → NEDAMB 16:10 → NEDA 02-14 07:46 → H260 02-14 08:20
PROVIDERS: ADMIT Psychiatry & Neurology Psychiatry; ATTEND Psychiatry & Neurology Psychiatry
PROC: 0HQEXZZ Repair Left Lower Arm Skin, External Approach (ICD-10-PCS; principal; 2018-02-14)
DX: F43.25 Adjustment disorder with mixed disturbance of emotions and conduct (principal); E11.9 Type 2 diabetes mellitus without complications; F19.10 Other psychoactive substance abuse, uncomplicated; S51.812A Laceration without foreign body of left forearm, initial encounter; X78.9XXA Intentional self-harm by unspecified sharp object, initial encounter; S00.83XA Contusion of other part of head, initial encounter; W50.0XXA Accidental hit or strike by another person, initial encounter
CPT/HCPCS: 12002; 70450; 70486; 80053; 80307; 81001; 84443; 84703; 85025; 87086; 96372; J0696